=== PATIENT | female | born 1955 | race Two or more races ===

== ENCOUNTER 2023-01-12 16:47 | Emergency (ER) | payer OTHER ==
[~2023-01-12] VITALS: Ht 154.9 cm; Wt 94.8 kg
[~2023-01-12 16:47] MED LIST: CALTRATE-600600 MG; IOPHEN DM-100 MG/5 M PO; NORVASC10 MG; ZITHROMAX500 MG PO
== END 2023-01-12 20:13 | disposition home or self-care (01) ==
LOC: ER 16:47
DX: K29.70 Gastritis, unspecified, without bleeding (principal); Z88.8 Allergy status to other drugs, medicaments and biological substances
CPT/HCPCS: 36415; 96365; 99283; J3490

== ENCOUNTER 2023-03-29 15:36 | Emergency (ER) | payer OTHER ==
[~2023-03-29] VITALS: Ht 154.9 cm; Wt 95.3 kg
[2023-03-29] MEDS ORDERED: MED PARA B/P (16:17)
[2023-03-29 17:31] LABS: HEMATOCRIT 41.6 % (36.0-45.00); HEMOGLOBIN 13.8 g/dL (12.0-15.00); MEAN CORPUSCULAR HEMOGLOBIN 29.9 pg (27.00-32.0); MEAN CORPUSCULAR HGB CONC 33.2 g/dl (32.0-36.0); PLATELET COUNT 231 K/uL (150-450); RED BLOOD COUNT 4.62 M/uL (4.00-6.00); RED CELL DISTRIBUTION WIDTH 13.6 % (11.5-14.5)
[2023-03-29 17:59] LABS: ALBUMIN 3.8 gm/dL (3.4-5.0); BILIRUBIN TOTAL 0.73 mg/dL (0.3-1.2); CALCIUM 9.2 mg/dL (8.5-10.1); CREATININE SERUM 0.72 mg/dL (0.55-1.02); GFR 81.04; GLOBULINA 3.7 G/DL (2.4-3.5); POTASSIUM 4.54 mEq/L (3.5-5.1); TOTAL PROTEIN 7.5 gm/dL (6.4-8.2)
[2023-03-29] MEDS ORDERED: PEPCID AC20 MG PO (18:20)
[2023-03-29] MEDS ORDERED: LEVSIN/SL0.125 MG SL (18:20)
== END 2023-03-29 18:46 | disposition home or self-care (01) ==
LOC: ER 15:36
PROVIDERS: General Practice
DX: K29.70 Gastritis, unspecified, without bleeding (principal); I10 Essential (primary) hypertension; Z88.6 Allergy status to analgesic agent